=== PATIENT | female | born 1990 | race Caucasian/White ===

== ENCOUNTER 2017-07-28 21:06 | Emergency (ER) | payer BC ==
[~2017-07-28] VITALS: Ht 177.8 cm; Wt 69.9 kg
--- NOTE | 2017-07-28 21:35 | NUR ---
Patient discharged to home in stable conditon. Written and verbal after care instructions given. Patient verbalizes understanding of instructions. Ambulated from ER with stable gait. All belongings with patient. Patient will be driven home by significant other in a private vehicle.
[2017-07-28 21:37] VITALS: BP 118/74
== END 2017-07-28 21:38 | disposition home or self-care (01) ==
LOC: ER 21:06
DX: R20.2 Paresthesia of skin (principal); T39.8X5A Adverse effect of other nonopioid analgesics and antipyretics, not elsewhere classified, initial encounter; Y92.89 Other specified places as the place of occurrence of the external cause
CPT/HCPCS: A4663